=== PATIENT | female | born 1995 | race American Indian/Alaskan Native ===

== ENCOUNTER 2020-04-16 04:14 | Emergency (ER) | payer MEDICAID ==
[2020-04-16] MEDS ORDERED: predniSONE 20 MG TAB PO ONE (05:10)
[2020-04-16] MEDS ORDERED: AMOXICILLIN/K CLAV 875/125MG TAB PO ONE (05:10)
[2020-04-16] MEDS ORDERED: IBUPROFEN 600 MG TAB PO ONE (05:10)
[2020-04-16 05:11] VITALS: BP 113/78
--- NOTE | 2020-04-16 05:28 | Emergency Department Report ---
ED General Adult HPI - General Chief complaint: Earache Stated complaint: EAR INFECTION/THROAT Source: patient Mode of arrival: Ambulatory Limitations: No Limitations - History of Present Illness Initial comments: Patient is a 24-year-old -Togol[place] female with no past medical history presents to the ED with complaint of acute onset persistent severe right ear pain with nasal and sinus congestion for the last 1 week, worse in the last 2 days. Patient states that she has not been able to sleep because of severe right ear pain. Patient denies dizziness, syncope, chest pain, shortness of breath, fever, chills, sore throat, cough, nausea and vomiting, hearing loss, back pain, abdominal pain, change in vision, traumatic injury or neck pain. MD Complaint: Right ear pain; Nasal and sinus congestion -: Sudden, week(s) (1) Location: face Radiation: non-radiation Severity scale (0 -10): 8 Quality: aching, sharp Consistency: constant Improves with: none Worsens with: none Associated Symptoms: denies other symptoms. denies: confusion, chest pain, cough, diaphoresis, fever/chills, headaches, loss of appetite, malaise, nausea/vomiting, rash, seizure, shortness of breath, syncope, other Treatments Prior to Arrival: none - Related Data Previous Rx's Medication Instructions Recorded Last Taken Type Amoxicillin/Potassium Clav 1 each PO Q12H #20 tablet 04/16/20 Unknown Rx [Augmentin 875-125 Tablet] Ibuprofen [Motrin] 800 mg PO Q8HR PRN #30 tablet 04/16/20 Unknown Rx Ofloxacin 0.3% [Floxin 0.3% Otic] 1 drop OT DAILY #5 ml 04/16/20 Unknown Rx ED Review of Systems ROS: Stated complaint: EAR INFECTION/THROAT Other details as noted in HPI Constitutional: denies: chills, fever Eyes: denies: eye pain, eye discharge, vision change ENT: ear pain, congestion (Right ear pain), other (Sinus congestion and pressure). denies: throat pain Respiratory: denies: cough, shortness of breath, wheezing Cardiovascular: denies: chest pain, palpitations Endocrine: no symptoms reported Gastrointestinal: denies: abdominal pain, nausea, diarrhea Genitourinary: denies: urgency, dysuria, discharge Musculoskeletal: denies: back pain, joint swelling, arthralgia Skin: denies: rash, lesions Neurological: denies: headache, weakness, paresthesias Psychiatric: denies: anxiety, depression Hematological/Lymphatic: denies: easy bleeding, easy bruising ED Past Medical Hx - Past Medical History Previous Medical History?: No - Surgical History Past Surgical History?: No - Social History Smoking Status: Never Smoker Substance Use Type: None - Medications Home Medications: Home Medications Medication Instructions Recorded Confirmed Last Taken Type Amoxicillin/Potassium Clav 1 each PO Q12H #20 tablet 04/16/20 Unknown Rx [Augmentin 875-125 Tablet] Ibuprofen [Motrin] 800 mg PO Q8HR PRN #30 tablet 04/16/20 Unknown Rx Ofloxacin 0.3% [Floxin 0.3% Otic] 1 drop OT DAILY #5 ml 04/16/20 Unknown Rx ED Physical Exam - General Limitations: No Limitations General appearance: alert, in no apparent distress - Head Head exam: Present: atraumatic, normocephalic, normal inspection - Eye Eye exam: Present: normal appearance, PERRL, EOMI Pupils: Present: normal accommodation - ENT ENT exam: Present: normal orophraynx, mucous membranes moist, other (Erythematous bulging tender right tympanic membrane with effusion; grossly congested nasal passages; palpable frontal sinus tenderness) - Neck Neck exam: Present: normal inspection, full ROM. Absent: tenderness, lymphadenopathy - Respiratory Respiratory exam: Present: normal lung sounds bilaterally. Absent: respiratory distress, wheezes, rales, rhonchi, chest wall tenderness, accessory muscle use, decreased breath sounds, prolonged expiratory - Cardiovascular Cardiovascular Exam: Present: normal rhythm, tachycardia, normal heart sounds. Absent: systolic murmur, diastolic murmur, rubs, gallop - GI/Abdominal GI/Abdominal exam: Present: soft, normal bowel sounds. Absent: tenderness, guarding, rebound, hyperactive bowel sounds, hypoactive bowel sounds - Extremities Exam Extremities exam: Present: normal inspection, full ROM, normal capillary refill - Back Exam Back exam: Present: normal inspection, full ROM. Absent: tenderness, CVA tenderness (R), CVA tenderness (L), muscle spasm, paraspinal tenderness, vertebral tenderness - Neurological Exam Neurological exam: Present: alert, oriented X3, CN II-XII intact, normal gait, reflexes normal - Psychiatric Psychiatric exam: Present: normal affect, normal mood - Skin Skin exam: Present: warm, dry, intact, normal color. Absent: rash ED Course Vital Signs 04/16/20 04:39 Temperature 98.0 F Pulse Rate 111 H Respiratory 16 Rate Blood Pressure 113/78 O2 Sat by Pulse 98 Oximetry ED Medical Decision Making - Medical Decision Making This is a 24-year-old -Tog[place] female with no past medical history presents to the ED with complaint of acute onset persistent severe right ear pain with nasal and sinus congestion for the last 1 week, worse in the last 2 days. Patient states that she has not been able to sleep because of severe right ear pain. In the ED, patient is alert and oriented x3 and is not in distress but appears to be in pain, afebrile and tachycardic in triage. Patient was treated for pain in the ED and also given initial oral antibiotics in the ED. On reevaluation, patient's pain is well controlled medications. Patient was discharged home on pain medications and antibiotics and advised to follow-up with her primary care physician in 5 to 7 days for reevaluation or return to the ED immediately if symptoms get worse. - Differential Diagnosis Otitis media; sinusitis; URI; Critical care attestation.: If time is entered above; I have spent that time in minutes in the direct care of this critically ill patient, excluding procedure time. ED Disposition Clinical Impression: Acute otitis media with effusion of right ear, Acute bacterial sinusitis Disposition: TO HOME OR SELFCARE Is pt being admited?: No Does the pt Need Aspirin: No Condition: Stable Instructions: Sinusitis, Adult, Izsd-[id number], Otitis Media, Adult, [id number]-zc-[id number] Additional Instructions: Take medication with food, drink plenty of fluids and follow-up with your primary care physician in 7 to 10 days for reevaluation. Immediately if symptoms get worse. Prescriptions: Amoxicillin/Potassium Clav [Augmentin 875-125 Tablet] 1 each PO Q12H #20 tablet Ofloxacin 0.3% [Floxin 0.3% Otic] 1 drop OT DAILY #5 ml Ibuprofen [Motrin] 800 mg PO Q8HR PRN #30 tablet PRN Reason: Pain , Severe (7-10) Referrals: [facility] [Provider Group] - 7-10 days Time of Disposition: 05:30 Print Language: TURKMEN
== END 2020-04-16 07:03 | disposition home or self-care (01) ==
LOC: ED 04:14
DX: J01.90 Acute sinusitis, unspecified (principal); H65.191 Other acute nonsuppurative otitis media, right ear; B96.89 Other specified bacterial agents as the cause of diseases classified elsewhere; Z79.899 Other long term (current) drug therapy
CPT/HCPCS: 99282; J7512

== ENCOUNTER 2021-02-25 04:37 | Emergency (ER) | payer MEDICAID ==
[2021-02-25] MEDS ORDERED: SODIUM CHLORIDE 0.9% 1000 ML 1,000 ML IV ONE (04:52)
[2021-02-25] MEDS ORDERED: ONDANSETRON 4 MG/2 ML INJ IV ONE (04:52)
[2021-02-25 04:53] VITALS: BP 130/66
--- NOTE | 2021-02-25 04:55 | Emergency Department Report ---
<MARTHA MARINA - Last Filed: 02/25/21 07:17> ED HPI - General Chief complaint: Nausea/Vomiting/Diarrhea Stated complaint: SEVERE MORNING SICKNESS Time Seen by Provider: 02/25/21 04:45 Source: patient Mode of arrival: Wheelchair Limitations: No Limitations - History of Present Illness Initial comments: 25-year-old female with no significant past medical history who is currently about 6 weeks based on her last menstrual cycle which was January 11 2021 presents to the ER today with complaints of severe morning sickness. Patient states that she has been having multiple episodes of nausea and vomiting for the past 3 days. She states that anytime she tries to eat or drink, she vomits. She states that emesis has been mainly liquid, food or bile. She reports no coffee-ground emesis or hematemesis. She denies any diarrhea. She states that she has been having intermittent abdominal cramping since she has been , but no worse recently. She also reports that she has been having some mild intermittent vaginal bleeding mainly when she wipes since last week, but she states that this resolved 3 days ago. She states that she has established with OB for care, and as of life cycle. Her next follow-up visit is 27 February. She is Ab1 (elective ). She denies any abnormal vaginal discharge or UTI symptoms. She denies any fever or chills. She denies any history of abdominal surgeries in the past. MD Complaint: other (Nause and vomiting) -: days(s) (3) - Related Data Previous Rx's Medication Instructions Recorded Last Taken Type Amoxicillin/Potassium Clav 1 each PO Q12H #20 tablet 04/16/20 Unknown Rx [Augmentin 875-125 Tablet] Ibuprofen [Motrin] 800 mg PO Q8HR PRN #30 tablet 04/16/20 Unknown Rx Ofloxacin 0.3% [Floxin 0.3% Otic] 1 drop OT DAILY #5 ml 04/16/20 Unknown Rx Doxylamine Succinate [Unisom] 25 mg PO BID PRN #20 tablet 02/25/21 Unknown Rx Martinez Root [Martinez] 250 mg PO QID PRN #40 capsule 02/25/21 Unknown Rx Pyridoxine [Vitamin B-6 50MG TAB] 50 mg PO DAILY #20 tab 02/25/21 Unknown Rx Allergies Allergy/AdvReac Type Severity Reaction Status Date / Time No Known Allergies Allergy Unverified 04/16/20 05:26 ED Review of Systems Comment: All other systems reviewed and negative Constitutional: denies: chills, fever Respiratory: denies: cough, shortness of breath, SOB with exertion, SOB at rest, wheezing Cardiovascular: denies: chest pain, palpitations Gastrointestinal: abdominal pain, nausea, vomiting. denies: diarrhea, constipation, hematemesis, melena, hematochezia Genitourinary: denies: urgency, dysuria, frequency, hematuria, discharge, abnormal menses, dyspareunia Musculoskeletal: denies: back pain, joint swelling, arthralgia Skin: denies: rash, lesions, change in color, change in hair/nails, pruritus Neurological: denies: headache, weakness, numbness, paresthesias, confusion, abnormal gait, vertigo Psychiatric: denies: anxiety, depression, auditory hallucinations, visual hallucinations, homicidal thoughts, suicidal thoughts Hematological/Lymphatic: denies: easy bleeding, easy bruising ED Past Medical Hx - Past Medical History Previous Medical History?: No - Surgical History Past Surgical History?: No - Social History Smoking Status: Never Smoker Substance Use Type: None - Medications Home Medications: Home Medications Medication Instructions Recorded Confirmed Last Taken Type Amoxicillin/Potassium Clav 1 each PO Q12H #20 tablet 04/16/20 Unknown Rx [Augmentin 875-125 Tablet] Ibuprofen [Motrin] 800 mg PO Q8HR PRN #30 tablet 04/16/20 Unknown Rx Ofloxacin 0.3% [Floxin 0.3% Otic] 1 drop OT DAILY #5 ml 04/16/20 Unknown Rx Doxylamine Succinate [Unisom] 25 mg PO BID PRN #20 tablet 02/25/21 Unknown Rx Martinez Root [Martinez] 250 mg PO QID PRN #40 capsule 02/25/21 Unknown Rx Pyridoxine [Vitamin B-6 50MG TAB] 50 mg PO DAILY #20 tab 02/25/21 Unknown Rx ED Physical Exam - General Limitations: No Limitations General appearance: alert, in no apparent distress - Head Head exam: Present: atraumatic, normocephalic, normal inspection - Eye Eye exam: Present: normal appearance, PERRL, EOMI Pupils: Present: normal accommodation - Neck Neck exam: Present: normal inspection, full ROM - Respiratory Respiratory exam: Present: normal lung sounds bilaterally. Absent: respiratory distress, wheezes, rales - Cardiovascular Cardiovascular Exam: Present: regular rate, normal rhythm, normal heart sounds - GI/Abdominal GI/Abdominal exam: Present: soft. Absent: distended, tenderness, guarding, rebound - Neurological Exam Neurological exam: Present: alert, oriented X3, CN II-XII intact, normal gait - Psychiatric Psychiatric exam: Present: normal affect, normal mood - Skin Skin exam: Present: intact ED Medical Decision Making - Lab Data Result diagrams: 02/25/21 04:59 02/25/21 04:59 - Medical Decision Making She reports feeling much better after IV fluids and Zofran. All labs reviewed - CBC unremarkable. CMP mild hypokalemia with a potassium of 3.1 but otherwise unremarkable. Oral dose of potassium given here in ER. Urinalysis appears more contaminated than true UTI. Patient is Rh+ therefore no indication for RhoGam today. Quant hCG measured 23745. OB ultrasound pending. The patient's care has been transferred to and accepted by[Cherelle Abdalla PA-C]. We discussed: The patient's chief complaints; labs and imaging that have been completed and those that are still pending; any treatment provided and the patient's response to treatment; any significant change in condition; the treatment plan prior to the transfer of care. The accepting provider will follow up on all pending labs and imaging and make any necessary changes to the current impression and/or treatment plan. The accepting physician/midlevel is now responsible for the patient's care and final disposition. ED Disposition Clinical Impression: Nausea and vomiting in , Subchorionic hemorrhage in first trimester Qualifiers: Weeks of gestation: less than 8 weeks Qualified Code(s): Z3A.01 - Less than 8 weeks gestation of Disposition: HOME / SELF CARE / HOMELESS Condition: Stable Instructions: Hyperemesis Gravidarum, Morning Sickness, Nndc-nm-Grah, Vaginal Bleeding During , First Trimester, Usdd-wc-Bkch Additional Instructions: Ultrasound shows an intrauterine gestation sac with approximately 5 weeks and 6 days. Cardiac activity is 110 bpm. It does show that you have a subchronic hemorrhage which is common in . But this does pose a risk so you will need to be on pelvic rest until you have followed up with your MINE EN[employer]IRONMENTAL ENGINEER. That means no objects into your vaginal area no heavy exercise and jumping or running. Is very important you follow-up with your MINE ENVIRONMENTAL ENGINEER in the next 2 to 3 days. Tylenol is the only thing you can take for pain. Is very important for you to increase your water intake and advance your diet as tolerated. I am placing you on antinausea medication. Prescriptions: Martinez Root [Martinez] 250 mg PO QID PRN #40 capsule PRN Reason: Nausea And Vomiting Doxylamine Succinate [Unisom] 25 mg PO BID PRN #20 tablet PRN Reason: Nausea And Vomiting Pyridoxine [Vitamin B-6 50MG TAB] 50 mg PO DAILY #20 tab Referrals: [facility] [Provider Group] - 3-5 Days Forms: Work/School Release Form(ED) <MATILDA ABDALLA - Last Filed: 02/25/21 08:46> ED Review of Systems ROS: Stated complaint: SEVERE MORNING SICKNESS Other details as noted in HPI ED Course Vital Signs 02/25/21 04:44 Temperature 98.1 F Pulse Rate 76 Respiratory 22 Rate Blood Pressure 130/66 O2 Sat by Pulse 99 Oximetry ED Medical Decision Making - Lab Data Result diagrams: 02/25/21 04:59 02/25/21 04:59 - Radiology Data Radiology results: [place] [address] Ultrasound Report Signed Patient: LYNETTE CHAPIN MR#: [id number] : 1995 Acct:[id number] Age/Sex: 25 / F ADM Date: 02/25/21 Loc: ED Attending Dr: Ordering Physician: MARTHA MARINA Date of Service: 02/25/21 Procedure(s): US OB <= 14 weeks fetus Accession Number(s): [id number] cc: MARTHA MARINA [facility] OBSTETRIC ULTRASOUND HISTORY: Abdominal cramping, vaginal bleeding, 6 weeks COMPARISON: None. TECHNIQUE: Routine transabdominal OB ultrasound performed. FINDINGS: Uterus: The uterus is anteverted and normal size measuring 8.3 x 4.4 x 6.2 cm. Gestational Sac: Well-defined oval shape and intrauterine in location. Yolk Sac: Normal in appearance. Fetus/Embryo: [place]-rump length of 3.1 cm, corresponding to an estimated gestational age of 5 weeks 6 days. Embryonic/ anatomy is too small for evaluation. Embryonic/ cardiac activity: 110bpm Placenta: Too small for evaluation. Amniotic fluid volume: Subjectively appropriate for gestational age. Ovaries: The right ovary is normal in size and appearance with normal blood flow, measuring 3.6 x 1.8 x 1.9 cm. The left ovary is normal in size and appearance with normal blood flow, measuring 3.8 x 1.8 x 1.8 cm. Hypoechoic space-occupying mass in the left ovary with peripheral vascularity is most likely the corpus luteum. Additional findings: There is a large primarily anechoic fluid collection along the posterior, inferior border of the gestational sac measuring up to 2.3 x 1.1 x 1.9 cm. No internal perfusion is detected on color Doppler imaging. No discrete pole or yolk sac could be demonstrated. This probably represents a large subchorionic hemorrhage. A second gestational sac is thought less likely. Close interval follow-up is recommended. IMPRESSION Viable single intrauterine as described above. Probable large subchorionic hemorrhage along the inferior borders of the gestational sac. Please see above. Signer Name: Keron Guerin Jr, MD Signed: 02/25/2021 7:47 AM Workstation Name: [id number] Transcribed By: TTR Dictated By: KERON GUERIN JR, MD Electronically Authenticated By: KERON GUERIN JR, MD Signed Date/Time: 02/25/21 5234 - Medical Decision Making Ultrasound shows a viable intrauterine gestation is approximately 5 weeks 6 days with a heartbeat of 110. They do show a large subchronic hemorrhage. Patient's hCG will is greater than 50,000. She is RhoGam positive therefore no RhoGam shot is needed. Patient is instructed to take martinez root and Unisom B6 as needed for nausea and vomiting. Encourage patient to increase her fluid intake advance her diet as tolerated. Encourage patient to be on pelvic rest and she needs to follow-up with her primary care provider in 2 to 3 days. Critical care attestation.: If time is entered above; I have spent that time in minutes in the direct care of this critically ill patient, excluding procedure time. ED Disposition Is pt being admited?: No Does the pt Need Aspirin: No
[2021-02-25 05:41] LABS: Alanine Aminotransferase 11 units/L (7-56); Albumin 4.4 g/dL (3.9-5); Basophils % (Auto) 0.7 % (0.0-1.8); Blood Urea Nitrogen 6 mg/dL (7-17); Calcium 9.7 mg/dL (8.4-10.2); Eosinophils # (Auto) 0.1 K/mm3 (0.0-0.4); Eosinophils % (Auto) 1.4 % (0.0-4.3); Hematocrit 35.9 % (30.3-42.9); Hemoglobin 12.1 gm/dl (10.1-14.3); Hemolysis Index 2; Lymphocytes # (Auto) 1.2 K/mm3 (1.2-5.4); Lymphocytes % (Auto) 17.2 % (13.4-35.0); Mean Corpuscular HGB Conc 34 % (30-34); Mean Corpuscular Volume 83 fl (79-97); Monocytes # (Auto) 0.9 K/mm3 (0.0-0.8); Monocytes % (Auto) 12.5 % (0.0-7.3); Platelet Count 233 K/mm3 (140-440); Red Blood Count 4.32 M/mm3 (3.65-5.03)
[2021-02-25 05:44] LABS: Red Cell Distribution Width 19.1 % (13.2-15.2)
[2021-02-25 05:46] LABS: BUN/Creatinine Ratio 10
[2021-02-25 06:46] LABS: Bacteria,Urine 1+ /HPF (Negative); Bilirubin,Urine NEG (Negative); Blood,Urine LG (Negative); Color,Urine Yellow (Yellow); Mucus,Urine FEW /HPF; Protein,Urine <15 mg/dL mg/dL (Negative); Urobilinogen,Urine < 2.0 mg/dL (<2.0)
[2021-02-25] MEDS ORDERED: POTASSIUM CHLORIDE ER 20 MEQ TAB PO ONE (07:29)
--- NOTE | 2021-02-25 07:51 | Ultrasound Report ---
[facility] OBSTETRIC ULTRASOUND HISTORY: Abdominal cramping, vaginal bleeding, 6 weeks COMPARISON: None. TECHNIQUE: Routine transabdominal OB ultrasound performed. FINDINGS: Uterus: The uterus is anteverted and normal size measuring 8.3 x 4.4 x 6.2 cm. Gestational Sac: Well-defined oval shape and intrauterine in location. Yolk Sac: Normal in appearance. Fetus/Embryo: [place]-rump length of 3.1 cm, corresponding to an estimated gestational age of 5 weeks 6 days. Embryonic/ anatomy is too small for evaluation. Embryonic/ cardiac activity: 110bpm Placenta: Too small for evaluation. Amniotic fluid volume: Subjectively appropriate for gestational age. Ovaries: The right ovary is normal in size and appearance with normal blood flow, measuring 3.6 x 1. 8 x 1.9 cm. The left ovary is normal in size and appearance with normal blood flow, measuring 3.8 x 1.8 x 1.8 cm. Hypoechoic space-occupying mass in the left ovary with peripheral vascularity is most likely the corpus luteum. Additional findings: There is a large primarily anechoic fluid collection along the posterior, inferi or border of the gestational sac measuring up to 2.3 x 1.1 x 1.9 cm. No internal perfusion is detecte d on color Doppler imaging. No discrete pole or yolk sac could be demonstrated. This probably r epresents a large subchorionic hemorrhage. A second gestational sac is thought less likely. Close int erval follow-up is recommended. IMPRESSION Viable single intrauterine as described above. Probable large subchorionic hemorrhage along the inferior borders of the gestational sac. Please see above. Signer Name: Keron Guerin Jr, MD Signed: 02/25/2021 7:47 AM Workstation Name: [id number]
== END 2021-02-25 08:36 | disposition home or self-care (01) ==
LOC: ED 04:37
DX: O21.9 Vomiting of pregnancy, unspecified (principal); O20.8 Other hemorrhage in early pregnancy; Z3A.01 Less than 8 weeks gestation of pregnancy
CPT/HCPCS: 36415; 76801; 80053; 81001; 83690; 84702; 85025; 86900; 86901; 96361; 96374; 99284; J2405; J7030

== ENCOUNTER 2021-08-18 19:24 | Emergency (ER) | payer MEDICAID ==
[2021-08-18 19:56] VITALS: BP 129/82
[2021-08-18] MEDS ORDERED: ACETAMINOPHEN 500 MG TAB PO ONE (21:32)
[2021-08-18 23:23] LABS: HCG Qualitative,Urine Positive (Negative)
[2021-08-18 23:29] LABS: Bacteria,Urine 1+ /HPF (Negative); Bilirubin,Urine NEG (Negative); Blood,Urine NEG (Negative); Color,Urine Yellow (Yellow); Mucus,Urine FEW /HPF; Protein,Urine <15 mg/dL mg/dL (Negative)
--- NOTE | 2021-08-18 23:40 | Emergency Department Report ---
ED Female HPI - General Chief complaint: Urogenital-Female Stated complaint: 7 WEEKS ,HEADACHE,VAGINAL ODOR Source: patient Mode of arrival: Ambulatory Limitations: No Limitations - History of Present Illness Initial comments: Patient is a A0 25-year-old -[place] female who is approximately 7 weeks gestation and who presents to the ED with complaint of acute onset persistent frontal headache with vaginal discharge with fishy smell for the last 1 week, worse in the last 3 days. Patient states that this vaginal malodorous order is worse after sexual intercourse. Patient denies abdominal pain, vaginal bleeding, dizziness, syncope, fever, chills, nausea, vomiting, chest pain or shortness of breath and sore throat. MD Complaint: vaginal discharge, other (Headache) -: Sudden, week(s) (1) Location: other (Vaginal) Radiation: non-radiating Severity: moderate Severity scale (0 -10): 4 Quality: sharp, aching Consistency: intermittent Improves with: none Worsens with: none Are you Now?: Yes (7 weeks gestation) Associated Symptoms: denies other symptoms, vaginal discharge, other (Headache). denies: vaginal bleeding, abdominal pain, nausea/vomiting, fever/chills, headaches, loss of appetite, hematuria, rash, seizure, shortness of breath, syncope, weakness - Related Data Sexually active: Yes : 1 Para: 0 A: 0 Previous Rx's Medication Instructions Recorded Last Taken Type Amoxicillin/Potassium Clav 1 each PO Q12H #20 tablet 04/16/20 Unknown Rx [Augmentin 875-125 Tablet] Ibuprofen [Motrin] 800 mg PO Q8HR PRN #30 tablet 04/16/20 Unknown Rx Ofloxacin 0.3% [Floxin 0.3% Otic] 1 drop OT DAILY #5 ml 04/16/20 Unknown Rx Doxylamine Succinate [Unisom] 25 mg PO BID PRN #20 tablet 02/25/21 Unknown Rx Christel Root [Christel] 250 mg PO QID PRN #40 capsule 02/25/21 Unknown Rx Pyridoxine [Vitamin B-6 50MG TAB] 50 mg PO DAILY #20 tab 02/25/21 Unknown Rx Acetaminophen [Tylenol] 500 mg PO Q6HR #30 tablet 08/18/21 Unknown Rx metroNIDAZOLE [Flagyl] 500 mg PO Q12HR #14 tab 08/18/21 Unknown Rx Allergies Allergy/AdvReac Type Severity Reaction Status Date / Time No Known Allergies Allergy Unverified 04/16/20 05:26 ED Review of Systems ROS: Stated complaint: 7 WEEKS ,HEADACHE,VAGINAL ODOR Other details as noted in HPI Constitutional: denies: chills, fever Eyes: denies: eye pain, eye discharge, vision change ENT: denies: ear pain, throat pain Respiratory: denies: cough, shortness of breath, wheezing Cardiovascular: denies: chest pain, palpitations Endocrine: no symptoms reported Gastrointestinal: denies: abdominal pain, nausea, diarrhea Genitourinary: discharge. denies: urgency, dysuria, frequency, hematuria, abnormal menses, dyspareunia, other Musculoskeletal: denies: back pain, joint swelling, arthralgia Skin: denies: rash, lesions Neurological: headache. denies: weakness, paresthesias Psychiatric: denies: anxiety, depression Hematological/Lymphatic: denies: easy bleeding, easy bruising ED Past Medical Hx - Past Medical History Previous Medical History?: No - Surgical History Past Surgical History?: No - Social History Smoking Status: Never Smoker Substance Use Type: None - Medications Home Medications: Home Medications Medication Instructions Recorded Confirmed Last Taken Type Amoxicillin/Potassium Clav 1 each PO Q12H #20 tablet 04/16/20 Unknown Rx [Augmentin 875-125 Tablet] Ibuprofen [Motrin] 800 mg PO Q8HR PRN #30 tablet 04/16/20 Unknown Rx Ofloxacin 0.3% [Floxin 0.3% Otic] 1 drop OT DAILY #5 ml 04/16/20 Unknown Rx Doxylamine Succinate [Unisom] 25 mg PO BID PRN #20 tablet 02/25/21 Unknown Rx Christel Root [Christel] 250 mg PO QID PRN #40 capsule 02/25/21 Unknown Rx Pyridoxine [Vitamin B-6 50MG TAB] 50 mg PO DAILY #20 tab 02/25/21 Unknown Rx Acetaminophen [Tylenol] 500 mg PO Q6HR #30 tablet 08/18/21 Unknown Rx metroNIDAZOLE [Flagyl] 500 mg PO Q12HR #14 tab 08/18/21 Unknown Rx ED Physical Exam - General Limitations: No Limitations General appearance: alert, in no apparent distress - Head Head exam: Present: atraumatic, normocephalic, normal inspection - Eye Eye exam: Present: normal appearance, PERRL, EOMI Pupils: Present: normal accommodation - ENT ENT exam: Present: normal exam, normal orophraynx, mucous membranes moist, TM's normal bilaterally, normal external ear exam - Neck Neck exam: Present: normal inspection, full ROM. Absent: tenderness - Respiratory Respiratory exam: Present: normal lung sounds bilaterally. Absent: respiratory distress, wheezes, rales, rhonchi, chest wall tenderness, accessory muscle use, decreased breath sounds, prolonged expiratory - Cardiovascular Cardiovascular Exam: Present: regular rate, normal rhythm, normal heart sounds. Absent: systolic murmur, diastolic murmur, rubs, gallop - GI/Abdominal GI/Abdominal exam: Present: soft, normal bowel sounds. Absent: tenderness, guarding, rebound, hyperactive bowel sounds, organomegaly, mass - Bi-manual exam: Present: other (Pelvic exam deferred at this time, patient preferred self swab) - Extremities Exam Extremities exam: Present: normal inspection, full ROM, normal capillary refill - Back Exam Back exam: Present: normal inspection, full ROM. Absent: tenderness, CVA te nderness (R), CVA tenderness (L), muscle spasm, paraspinal tenderness, vertebral tenderness - Neurological Exam Neurological exam: Present: alert, oriented X3, CN II-XII intact, normal gait, reflexes normal - Psychiatric Psychiatric exam: Present: normal affect, normal mood - Skin Skin exam: Present: warm, dry, intact, normal color. Absent: rash ED Course Vital Signs 08/18/21 19:54 Temperature 98.7 F Pulse Rate 85 Respiratory 18 Rate Blood Pressure 129/82 O2 Sat by Pulse 100 Oximetry ED Medical Decision Making - Medical Decision Making This is a A0 25-year-old -[place] female who is approximately 7 weeks gestation and who presents to the ED with complaint of acute onset persistent frontal headache with vaginal discharge with fishy smell for the last 1 week, worse in the last 3 days. Patient states that this vaginal malodorous order is worse after sexual intercourse. In the ED, patient is alert and oriented x3 and is not in any distress. Patient was treated for headache with Tylenol in the ED. Urinalysis is unremarkable but wet prep test was positive for Gardnerella vaginalis consistent with bacterial vaginosis. Patient was discharged home on antibiotics for bacterial vaginosis and advised to follow-up with her [facility] physician in 7 to 10 days for reevaluation. Patient was advised return to the ED immediately if symptoms get worse. - Differential Diagnosis Bacterial vaginosis; UTI; STD; URI; Critical care attestation.: If time is entered above; I have spent that time in minutes in the direct care of this critically ill patient, excluding procedure time. ED Disposition Clinical Impression: Bacterial vaginosis in Acute tension headache Qualifiers: Intractability: not intractable Qualified Code(s): G44.209 - Tension-type he adache, unspecified, not intractable Disposition: 01 HOME / SELF CARE / HOMELESS Is pt being admited?: No Does the pt Need Aspirin: No Condition: Stable Instructions: Bacterial Vaginosis (ED), Bacterial Vaginosis, [id number], Tension Headache, Adult, [id number] Additional Instructions: All test results were reviewed and are all nonactionable except for wet prep test that was positive for bacterial vaginosis. Therefore take the antibiotic for 7 days as advised, take pain medication, mainly Tylenol as needed for headache and follow-up with your [facility] physician in 5 to 7 days for reevaluation or return to the ED immediately if symptoms get worse. Prescriptions: Acetaminophen [Tylenol] 500 mg PO Q6HR #30 tablet metroNIDAZOLE [Flagyl] 500 mg PO Q12HR #14 tab Referrals: MISBAH STATON MD [Staff Physician] - 7-10 days Forms: STI Treatment and Prevention Time of Disposition: 23:42 Print Language: ICELANDIC
== END 2021-08-18 23:59 | disposition home or self-care (01) ==
LOC: ED 19:24
DX: O26.891 Other specified pregnancy related conditions, first trimester (principal); O23.591 Infection of other part of genital tract in pregnancy, first trimester; G44.209 Tension-type headache, unspecified, not intractable; B96.89 Other specified bacterial agents as the cause of diseases classified elsewhere; Z3A.01 Less than 8 weeks gestation of pregnancy
CPT/HCPCS: 81001; 81025; 87210; 99283; 99284